=== PATIENT | male | born 1965 | race Two or more races ===

== ENCOUNTER 2017-07-11 14:59 | Emergency (ER) | payer OTHER ==
[~2017-07-11] VITALS: Ht 188 cm; Wt 142.9 kg
[~2017-07-11 14:59] MED LIST: ASA81 MG; CARDURA1 MG; COREG CR80 MG; GABAPENTIN300 MG; INDUSTRIAL EYE15 ML; KEFLEX750 MG PO; LANTUS100 U/ML; LASIX20 MG; LIPITOR20 MG; LISINOPRIL20 MG; MEFOXIN; OSEL75CA PO; SULINDAC200 MG PO; ZANTAC150 MG; ZYLOPRIM100 MG
== END 2017-07-11 20:32 | disposition home or self-care (01) ==
LOC: ER 14:59
DX: R42 Dizziness and giddiness (principal); I95.89 Other hypotension; M54.89 Other dorsalgia; R53.1 Weakness

== ENCOUNTER 2017-10-23 07:16 | Outpatient (CLI) | payer OTHER | END 2017-10-23 11:46 | disposition home or self-care (01) | LOC: NUCLEAR 07:16 | DX: I11.9 Hypertensive heart disease without heart failure (principal); E11.9 Type 2 diabetes mellitus without complications | CPT/HCPCS: A9500; J0153; 93017; 78452 ==

== ENCOUNTER 2017-10-28 22:51 | Emergency (ER) | payer OTHER ==
[~2017-10-28] VITALS: Ht 188 cm; Wt 139.7 kg
[2017-10-29] MEDS ORDERED: MOBIC15 MG PO (01:39)
[2017-10-29] MEDS ORDERED: NORFLEX100MG PO (01:39)
== END 2017-10-29 01:49 | disposition home or self-care (01) ==
LOC: ER 22:51
DX: M54.5 Low back pain (principal)

== ENCOUNTER 2018-04-19 05:55 | Emergency (ER) | payer OTHER ==
[~2018-04-19] VITALS: Ht 188 cm; Wt 139.7 kg
[~2018-04-19 05:55] MED LIST changes: +MOBIC15 MG PO; +NORFLEX100MG PO
== END 2018-04-19 12:20 | disposition home or self-care (01) ==
LOC: ER 05:55
DX: K80.80 Other cholelithiasis without obstruction (principal)